=== PATIENT | female | born 1955 | race Caucasian/White ===

== ENCOUNTER 2016-09-23 12:25 | Emergency (ER) | payer OTHER ==
[~2016-09-23] VITALS: Ht 162.6 cm; Wt 150.2 kg
[~2016-09-23 12:25] MED LIST: ACETAMINOPHEN500 MG PO; BUSPAR5 MG PO; CELEXA40 MG PO; CENTRUM SILVER1 EAC4 PO; CITALOPRAM HBR20 M1 PO; CITALOPRAM HBR40 MG PO; DESYREL300 MG PO; DIFLUCAN150 MG PO; DIFLUCAN200 MG PO; DOXYCYCLINE HY100 M3 PO; Desyrel PO; FUROSEMIDE40 MG PO; LASIX10 MG PO; LASIX40 MG PO; LEVAQUIN500 MG PO; LEVAQUIN750 MG PO; LEVOFLOXACIN750 MG PO; LEVOTHROID200 MCG PO; LEVOTHROID50 MCG PO; LEVOTHYROXINE125 MCG PO; LEVOTHYROXINE200 MC1 PO; LEVOTHYROXINE50 MCG PO; LINEZOLID600 MG PO; LOMOTIL TABLET1 EACH PO; LOPRESSOR25 MG PO; Levaquin PO; MACROBID100 MG PO; MEGESTROL ACETA40 MG PO; MELOXICAM15 MG PO; MELOXICAM7.5 MG PO; METOPROLOL TART50 MG PO; NABUMETONE500 MG PO; PROBIOTIC1 EAC1 PO; RANITIDINE HCL150 MG PO; SYNTHROID200 MCG PO; TRAMADOL HCL50 MG PO; TRAZODONE HCL100 MG PO; TRAZODONE HCL150 MG PO; TRAZODONE HCL50 MG PO; TYLENOL ARTHRI650 M2 PO; TYLENOL ARTHRI650 MG PO; TYLENOL EXTRA500 MG PO; VANCOCIN 250 M250 MG PO; VANCOCIN HCL125 MG PO; VITAMIN A10000 UNIT PO; VITAMIN D1000 UNIT PO; VITAMIN D31000 UNI2 PO; WOMEN'S DAILY1 EAC1 PO; WOMEN'S DAILY1 EAC2 PO; WOMENS MULTIPL1 EACH PO; ZANTAC150 M1 PO; ZEASORB-AF70 G1 TP; [UNRECOGNIZED DRUG - OTHER] TP
[2016-09-23 13:26] LABS: EOSINOPHIL (%) 2.1 % (0-5); EOSINOPHIL COUNT 0.2 K/uL (0-0.3); HEMATOCRIT 38.3 % (36.0-46.0); MCH 28.1 PG (29.0-34.0); MCHC 32.1 G/DL (30.0-36.0); MCV 87.6 FL (83-99); MEAN PLAT.VOLUME 9.3 uM^3 (9.5-12.4); MONOCYTE COUNT 0.7 K/uL (0-0.8); NEUTROPHIL (%) 75.4 % (45-76); NEUTROPHIL COUNT 5.5 K/uL (1.8-6.4); PLATELET COUNT 235 K/uL (156-360); RBC DIS.WIDTH-CV 13.6 % (11.8-14.6); RBC DIS.WIDTH-SD 42.4 % (39-53); RED BLOOD COUNT 4.37 M/uL (3.80-5.20); WHITE BLOOD COUNT 7.3 K/uL (4.1-10.2)
[2016-09-23 13:34] LABS: CHLORIDE 107 mEq/L (99-109); POTASSIUM 4.3 mEq/L (3.7-5.4); SODIUM 141 mEq/L (136-147)
[2016-09-23 13:36] LABS: GLUCOSE 79 mg/dL (70-99)
[2016-09-23 13:37] LABS: ANION GAP 10 MEQ/L (2-14)
[2016-09-23 13:38] LABS: TOTAL BILIRUBIN 0.2 mg/dL (0.0-1.0)
[2016-09-23 13:40] LABS: ALKALINE PHOSPHATASE 81 IU/L (3-129); GFR ESTIMATE (CALCULATED) 44 mL/min/
[2016-09-23 13:41] LABS: UREA NITROGEN (BUN) 17 mg/dL (9-23)
[2016-09-23 14:52] LABS: C DIFF TOXIN POSITIVE (NEGATIVE)
[2016-09-23 15:06] LABS: PROBE CHECK PASS
[2016-09-23] MEDS ORDERED: VANCOMYCIN125 MG/2.5 PO (16:02)
[2016-09-23 16:20] VITALS: BP 174/75
== END 2016-09-23 16:47 | disposition home or self-care (01) ==
LOC: EME → EDBD 12:25 → EME 12:25
PROVIDERS: Emergency Medicine
DX: A04.7 Enterocolitis due to Clostridium difficile (principal); I10 Essential (primary) hypertension; K21.9 Gastro-esophageal reflux disease without esophagitis; E03.9 Hypothyroidism, unspecified; Z87.442 Personal history of urinary calculi; Z85.42 Personal history of malignant neoplasm of other parts of uterus; Z87.891 Personal history of nicotine dependence
CPT/HCPCS: 80053; 85025; 87493; 87506; 99281; 99285

== ENCOUNTER 2016-10-10 20:44 | Inpatient (IN) | payer OTHER ==
[~2016-10-10] VITALS: Ht 162.6 cm; Wt 159.6 kg
[~2016-10-10 20:44] MED LIST changes: +VANCOMYCIN125 MG/2.5 PO
[2016-10-10 21:32] LABS: HEMATOCRIT 39.6 % (36.0-46.0); MCH 27.9 PG (29.0-34.0); MCHC 31.8 G/DL (30.0-36.0); MCV 87.8 FL (83-99); MEAN PLAT.VOLUME 9.4 uM^3 (9.5-12.4); PLATELET COUNT 259 K/uL (156-360); RBC DIS.WIDTH-CV 13.8 % (11.8-14.6); RBC DIS.WIDTH-SD 43.1 % (39-53); RED BLOOD COUNT 4.51 M/uL (3.80-5.20); WHITE BLOOD COUNT 5.4 K/uL (4.1-10.2)
[2016-10-10 21:46] LABS: CHLORIDE 110 mEq/L (99-109); POTASSIUM 4.9 mEq/L (3.7-5.4); SODIUM 142 mEq/L (136-147)
[2016-10-10 21:47] LABS: GLUCOSE 105 mg/dL (70-99)
[2016-10-10 21:49] LABS: ANION GAP 10 MEQ/L (2-14)
[2016-10-10 21:51] LABS: GFR ESTIMATE (CALCULATED) 35 mL/min/
[2016-10-10 21:52] LABS: UREA NITROGEN (BUN) 18 mg/dL (9-23)
[2016-10-10] MEDS ORDERED: DESYREL 150 MG150 MG PO (22:51)
[2016-10-10] MEDS ORDERED: DIFLUCAN150 MG PO (22:53)
[2016-10-10] MEDS ORDERED: DIFICID200 MG PO (22:54)
[2016-10-11 02:45] VITALS: BP 117/60
[2016-10-11 03:10] VITALS: BP 158/74
[2016-10-11 06:50] VITALS: BP 169/77
[2016-10-11 12:06] VITALS: BP 162/72
[2016-10-11 15:54] VITALS: BP 130/60
[2016-10-11 19:39] VITALS: BP 150/74
[2016-10-12 01:11] LABS: METH RESISTANT S AUREUS PCR NEGATIVE (NEGATIVE)
[2016-10-12 01:20] LABS: PROBE CHECK PASS; SPECIMEN PROCESSING CONTROL PASS
[2016-10-12 03:39] VITALS: BP 157/66
[2016-10-12 06:30] LABS: EOSINOPHIL (%) 2.4 % (0-5); EOSINOPHIL COUNT 0.1 K/uL (0-0.3); HEMATOCRIT 33.8 % (36.0-46.0); IMMATURE GRANULOCYTE (%) 0.2 % (0.0-0.7); MCH 27.4 PG (29.0-34.0); MCHC 30.5 G/DL (30.0-36.0); MCV 89.9 FL (83-99); MEAN PLAT.VOLUME 9.4 uM^3 (9.5-12.4); MONOCYTE (%) 12.2 % (3-12); MONOCYTE COUNT 0.7 K/uL (0-0.8); NEUTROPHIL (%) 66.5 % (45-76); NEUTROPHIL COUNT 3.6 K/uL (1.8-6.4); PLATELET COUNT 196 K/uL (156-360); RBC DIS.WIDTH-CV 14.4 % (11.8-14.6); RED BLOOD COUNT 3.76 M/uL (3.80-5.20); WHITE BLOOD COUNT 5.4 K/uL (4.1-10.2)
[2016-10-12 06:38] LABS: ANION GAP 4 MEQ/L (2-14); CHLORIDE 110 MEQ/L (99-109); GFR ESTIMATE (CALCULATED) 35 mL/min/; GLUCOSE 77 mg/dL (70-99); POTASSIUM 4.3 MEQ/L (3.7-5.4); SAMPLE HEMOLYSIS CHECK 0; SAMPLE ICTERIC CHECK 0; SAMPLE LIPEMIA CHECK 0; SODIUM 142 MEQ/L (136-147); UREA NITROGEN (BUN) 18 mg/dL (9-23)
[2016-10-12 15:33] VITALS: BP 136/68
[2016-10-13 00:22] VITALS: BP 156/77
[2016-10-13 07:50] VITALS: BP 149/67
[2016-10-13 15:27] VITALS: BP 149/71
[2016-10-13 23:42] VITALS: BP 143/67
[2016-10-14 07:04] VITALS: BP 139/67
[2016-10-14 11:17] LABS: HEMATOCRIT 33.6 % (36.0-46.0); MCH 27.4 PG (29.0-34.0); MCHC 30.7 G/DL (30.0-36.0); MCV 89.4 FL (83-99); MEAN PLAT.VOLUME 9.6 uM^3 (9.5-12.4); PLATELET COUNT 188 K/uL (156-360); RBC DIS.WIDTH-SD 45.6 % (39-53); RED BLOOD COUNT 3.76 M/uL (3.80-5.20); WHITE BLOOD COUNT 5.6 K/uL (4.1-10.2)
[2016-10-14 11:54] LABS: ALKALINE PHOSPHATASE 65 IU/L (3-129); ANION GAP 7 MEQ/L (2-14); CHLORIDE 108 MEQ/L (99-109); GFR ESTIMATE (CALCULATED) 48 mL/min/; POTASSIUM 4.3 MEQ/L (3.7-5.4); SAMPLE HEMOLYSIS CHECK 0; SAMPLE ICTERIC CHECK 0; SAMPLE LIPEMIA CHECK 0; SODIUM 141 MEQ/L (136-147); TOTAL BILIRUBIN 0.3 MG/DL (0.0-1.0); UREA NITROGEN (BUN) 18 mg/dL (9-23)
[2016-10-14 11:56] LABS: GLUCOSE 116 mg/dL (70-99)
[2016-10-14 15:45] VITALS: BP 141/70
[2016-10-15] VITALS: BP 136/67
[2016-10-15 07:14] LABS: EOSINOPHIL (%) 3.3 % (0-5); EOSINOPHIL COUNT 0.2 K/uL (0-0.3); HEMATOCRIT 33.4 % (36.0-46.0); IMMATURE GRANULOCYTE (%) 0.4 % (0.0-0.7); LYMPHOCYTE COUNT 0.9 K/uL (1.0-2.8); MCH 27.7 PG (29.0-34.0); MCHC 31.1 G/DL (30.0-36.0); MCV 89.1 FL (83-99); MEAN PLAT.VOLUME 9.3 uM^3 (9.5-12.4); MONOCYTE (%) 11.6 % (3-12); MONOCYTE COUNT 0.6 K/uL (0-0.8); NEUTROPHIL (%) 66.8 % (45-76); NEUTROPHIL COUNT 3.5 K/uL (1.8-6.4); PLATELET COUNT 205 K/uL (156-360); RBC DIS.WIDTH-CV 14.2 % (11.8-14.6); RBC DIS.WIDTH-SD 46.1 % (39-53); RED BLOOD COUNT 3.75 M/uL (3.80-5.20); WHITE BLOOD COUNT 5.2 K/uL (4.1-10.2)
[2016-10-15 07:38] VITALS: BP 140/80
[2016-10-15 07:46] LABS: ANION GAP 7 MEQ/L (2-14); CHLORIDE 108 MEQ/L (99-109); GFR ESTIMATE (CALCULATED) 40 mL/min/; POTASSIUM 4.4 MEQ/L (3.7-5.4); SAMPLE HEMOLYSIS CHECK 0; SAMPLE ICTERIC CHECK 0; SAMPLE LIPEMIA CHECK 0; SODIUM 140 MEQ/L (136-147); UREA NITROGEN (BUN) 23 mg/dL (9-23)
[2016-10-15 07:47] LABS: GLUCOSE 81 mg/dL (70-99)
[2016-10-15 11:40] LABS: ADD MIUA? YES; BILIRUBIN NEGATIVE; BLOOD SMALL; COLOR YELLOW ((YELLOW)); GLUCOSE (STRIP) NEGATIVE; KETONES NEGATIVE; LEUKOCYTES LARGE; NITRITE POSITIVE; PROTEIN (STRIP) NEGATIVE; SPECIFIC GRAVITY 1.018 (1.000-1.030); UROBILINOGEN 0.2 MG/DL (0.2-1.0)
[2016-10-15 14:09] LABS: RED BLOOD CELLS 0-5 /HPF (0-5); WHITE BLOOD CELLS 15-20 /HPF (0-5)
[2016-10-15 14:10] LABS: BACTERIA 3+ /HPF; CASTS NONE SEEN /LPF; CRYSTALS NONE SEEN; EPITHELIAL CELLS RARE /HPF; MUCUS 1+; UCUL ADDED? YES
[2016-10-15 16:15] VITALS: BP 141/66
[2016-10-15 23:38] VITALS: BP 138/70
[2016-10-16 07:35] LABS: EOSINOPHIL (%) 3.1 % (0-5); EOSINOPHIL COUNT 0.2 K/uL (0-0.3); IMMATURE GRANULOCYTE (%) 0.2 % (0.0-0.7); LYMPHOCYTE COUNT 0.8 K/uL (1.0-2.8); MCH 28.6 PG (29.0-34.0); MCHC 32.1 G/DL (30.0-36.0); MCV 89.2 FL (83-99); MEAN PLAT.VOLUME 9.8 uM^3 (9.5-12.4); MONOCYTE (%) 10.1 % (3-12); MONOCYTE COUNT 0.5 K/uL (0-0.8); NEUTROPHIL (%) 71.8 % (45-76); NEUTROPHIL COUNT 3.7 K/uL (1.8-6.4); PLATELET COUNT 206 K/uL (156-360); RBC DIS.WIDTH-CV 13.9 % (11.8-14.6); RBC DIS.WIDTH-SD 45.8 % (39-53); WHITE BLOOD COUNT 5.1 K/uL (4.1-10.2)
[2016-10-16 08:00] VITALS: BP 146/79
[2016-10-16 08:03] LABS: ALKALINE PHOSPHATASE 60 IU/L (3-129); ANION GAP 7 MEQ/L (2-14); CHLORIDE 108 MEQ/L (99-109); GFR ESTIMATE (CALCULATED) 37 mL/min/; GLUCOSE 81 mg/dL (70-99); POTASSIUM 4.4 MEQ/L (3.7-5.4); SAMPLE HEMOLYSIS CHECK 0; SAMPLE ICTERIC CHECK 0; SAMPLE LIPEMIA CHECK 0; SODIUM 140 MEQ/L (136-147); TOTAL BILIRUBIN 0.3 MG/DL (0.0-1.0); UREA NITROGEN (BUN) 24 mg/dL (9-23)
[2016-10-16] MEDS ORDERED: ZYVOX600 MG PO (09:45)
[2016-10-16] MEDS ORDERED: ENDOCET 5-3251 EACH PO (09:45)
== END 2016-10-16 15:20 | disposition home or self-care (01) | DRG 603 ==
LOC: EME → EDBD 20:44 → 2EAST 10-11 01:28 → EDOF 10-11 01:28 → 2EAST 10-11 02:56
PROVIDERS: Emergency Medicine; Hospitalist; Internal Medicine
DX: L03.116 Cellulitis of left lower limb (principal); A04.7 Enterocolitis due to Clostridium difficile; L97.129 Non-pressure chronic ulcer of left thigh with unspecified severity; Z68.44 Body mass index [BMI] 60.0-69.9, adult; L03.115 Cellulitis of right lower limb; E11.22 Type 2 diabetes mellitus with diabetic chronic kidney disease; E66.01 Morbid (severe) obesity due to excess calories; N18.3 Chronic kidney disease, stage 3 (moderate); I87.2 Venous insufficiency (chronic) (peripheral); E03.9 Hypothyroidism, unspecified; R82.71 Bacteriuria; I89.0 Lymphedema, not elsewhere classified; F32.9 Major depressive disorder, single episode, unspecified; E78.5 Hyperlipidemia, unspecified; I12.9 Hypertensive chronic kidney disease with stage 1 through stage 4 chronic kidney disease, or unspecified chronic kidney disease; L65.9 Nonscarring hair loss, unspecified; L30.9 Dermatitis, unspecified; Z85.89 Personal history of malignant neoplasm of other organs and systems
CPT/HCPCS: 74176; 80048; 80053; 80202; 81003; 82948; 85025; 85027; 87077; 87086; 87186; 87641; 93971; 99281; 99284; J1644; J1815; J2270; J3370

== ENCOUNTER 2016-10-18 01:50 | Emergency (ER) | payer OTHER ==
[~2016-10-18] VITALS: Ht 162.6 cm; Wt 155.4 kg
[~2016-10-18 01:50] MED LIST changes: +DESYREL 150 MG150 MG PO; +DIFICID200 MG PO; +ENDOCET 5-3251 EACH PO; +ZYVOX600 MG PO
[2016-10-18 03:18] LABS: EOSINOPHIL (%) 2.5 % (0-5); EOSINOPHIL COUNT 0.2 K/uL (0-0.3); HEMATOCRIT 38.5 % (36.0-46.0); IMMATURE GRANULOCYTE (%) 0.2 % (0.0-0.7); IMMATURE GRANULOCYTE COUNT 0.2 K/uL; LYMPHOCYTE COUNT 0.9 K/uL (1.0-2.8); MCH 27.7 PG (29.0-34.0); MCHC 31.7 G/DL (30.0-36.0); MCV 87.3 FL (83-99); MEAN PLAT.VOLUME 9.4 uM^3 (9.5-12.4); MONOCYTE (%) 7.4 % (3-12); MONOCYTE COUNT 0.6 K/uL (0-0.8); NEUTROPHIL (%) 78.8 % (45-76); NEUTROPHIL COUNT 6.4 K/uL (1.8-6.4); PLATELET COUNT 269 K/uL (156-360); RBC DIS.WIDTH-CV 13.4 % (11.8-14.6); RBC DIS.WIDTH-SD 41.4 % (39-53); RED BLOOD COUNT 4.41 M/uL (3.80-5.20); WHITE BLOOD COUNT 8.1 K/uL (4.1-10.2)
[2016-10-18 03:23] LABS: CHLORIDE 110 mEq/L (99-109); POTASSIUM 4.1 mEq/L (3.7-5.4); SODIUM 142 mEq/L (136-147)
[2016-10-18 03:26] LABS: GLUCOSE 91 mg/dL (70-99)
[2016-10-18 03:27] LABS: ANION GAP 11 MEQ/L (2-14); TOTAL BILIRUBIN 0.3 mg/dL (0.0-1.0)
[2016-10-18 03:29] LABS: ALKALINE PHOSPHATASE 93 IU/L (3-129); GFR ESTIMATE (CALCULATED) 37 mL/min/
[2016-10-18 03:30] LABS: UREA NITROGEN (BUN) 20 mg/dL (9-23)
[2016-10-18 03:52] LABS: ADD MIUA? YES; BILIRUBIN NEGATIVE; BLOOD SMALL; COLOR YELLOW ((YELLOW)); GLUCOSE (STRIP) NEGATIVE; KETONES TRACE; LEUKOCYTES MODERATE; NITRITE NEGATIVE; PH, URINE 5.5 (5-8); PROTEIN (STRIP) TRACE; SPECIFIC GRAVITY 1.033 (1.000-1.030); UROBILINOGEN 0.2 MG/DL (0.2-1.0)
[2016-10-18 04:44] LABS: C DIFF TOXIN NEGATIVE (NEGATIVE)
[2016-10-18 04:52] LABS: EPITHELIAL CELLS RARE /HPF; MUCUS NONE SEEN /LPF; RED BLOOD CELLS 0-5 /HPF (0-5); WHITE BLOOD CELLS TNTC /HPF (0-5)
[2016-10-18 04:53] LABS: BACTERIA 1+ /HPF; CASTS NONE SEEN /LPF; CRYSTALS NONE SEEN; PROBE CHECK PASS; SPECIMEN PROCESSING CONTROL PASS; UCUL ADDED? YES
[2016-10-18 07:05] VITALS: BP 157/85
[2016-10-19] MEDS ORDERED: VANCOCIN HCL125 MG PO (10:01)
== END 2016-10-18 07:12 | disposition home or self-care (01) ==
LOC: EME 01:50
PROVIDERS: Emergency Medicine
DX: R19.7 Diarrhea, unspecified (principal); I10 Essential (primary) hypertension; Z87.442 Personal history of urinary calculi; K21.9 Gastro-esophageal reflux disease without esophagitis; E03.9 Hypothyroidism, unspecified; E66.01 Morbid (severe) obesity due to excess calories; Z68.43 Body mass index [BMI] 50.0-59.9, adult; Z87.891 Personal history of nicotine dependence
CPT/HCPCS: 80053; 81003; 85025; 87086; 87493; 87506; 99281; 99285; J7030

== ENCOUNTER 2016-10-19 07:27 | Emergency (ER) | payer OTHER ==
[~2016-10-19] VITALS: Ht 162.6 cm; Wt 154.1 kg
[2016-10-19 08:06] LABS: EOSINOPHIL (%) 2.7 % (0-5); EOSINOPHIL COUNT 0.2 K/uL (0-0.3); HEMATOCRIT 42.1 % (36.0-46.0); IMMATURE GRANULOCYTE (%) 0.2 % (0.0-0.7); IMMATURE GRANULOCYTE COUNT 0.1 K/uL; LYMPHOCYTE COUNT 0.6 K/uL (1.0-2.8); MCH 27.7 PG (29.0-34.0); MCHC 31.8 G/DL (30.0-36.0); MCV 87.2 FL (83-99); MEAN PLAT.VOLUME 9.4 uM^3 (9.5-12.4); MONOCYTE (%) 7.8 % (3-12); MONOCYTE COUNT 0.5 K/uL (0-0.8); NEUTROPHIL (%) 78.8 % (45-76); NEUTROPHIL COUNT 4.6 K/uL (1.8-6.4); PLATELET COUNT 287 K/uL (156-360); RBC DIS.WIDTH-CV 13.8 % (11.8-14.6); RBC DIS.WIDTH-SD 43.2 % (39-53); RED BLOOD COUNT 4.83 M/uL (3.80-5.20); WHITE BLOOD COUNT 5.9 K/uL (4.1-10.2)
[2016-10-19 08:18] LABS: CHLORIDE 110 mEq/L (99-109); POTASSIUM 3.9 mEq/L (3.7-5.4); SODIUM 145 mEq/L (136-147)
[2016-10-19 08:20] LABS: GLUCOSE 79 mg/dL (70-99)
[2016-10-19 08:22] LABS: ANION GAP 12 MEQ/L (2-14)
[2016-10-19 08:24] LABS: ALKALINE PHOSPHATASE 107 IU/L (3-129); GFR ESTIMATE (CALCULATED) 37 mL/min/; TOTAL BILIRUBIN 0.2 mg/dL (0.0-1.0)
[2016-10-19 08:25] LABS: UREA NITROGEN (BUN) 17 mg/dL (9-23)
[2016-10-19] MEDS ORDERED: VANCOCIN HCL125 MG PO (10:01)
[2016-10-19 10:27] VITALS: BP 131/62
== END 2016-10-19 12:09 | disposition home or self-care (01) ==
LOC: EME 07:27
PROVIDERS: Emergency Medicine
DX: R11.10 Vomiting, unspecified (principal); R19.7 Diarrhea, unspecified; I10 Essential (primary) hypertension; K21.9 Gastro-esophageal reflux disease without esophagitis; E03.9 Hypothyroidism, unspecified; R73.03 Prediabetes; Z85.42 Personal history of malignant neoplasm of other parts of uterus; Z87.442 Personal history of urinary calculi; Z87.891 Personal history of nicotine dependence
CPT/HCPCS: 80053; 85025; 87493; 99281; 99284; J7030

== ENCOUNTER → 2016-10-24 | Outpatient (CLI) | payer OTHER | END | disposition home or self-care (01) | LOC: AMB 10-10 08:30 | PROC: 0DH Gastrointestinal System, Insertion (ICD-10-PCS; principal; 2016-10-24) | DX: A04.7 Enterocolitis due to Clostridium difficile (principal) | CPT/HCPCS: 71010; 74000; G0455; J2060 ==

== ENCOUNTER 2016-11-13 22:08 | Inpatient (IN) | payer OTHER ==
[~2016-11-13] VITALS: Ht 162.6 cm; Wt 135.8 kg
[2016-11-13 23:37] LABS: CHLORIDE 107 mEq/L (99-109); SODIUM 140 mEq/L (136-147)
[2016-11-13 23:39] LABS: GLUCOSE 104 mg/dL (70-99)
[2016-11-13 23:40] LABS: EOSINOPHIL (%) 1.2 % (0-5); EOSINOPHIL COUNT 0.1 K/uL (0-0.3); HEMATOCRIT 39.9 % (36.0-46.0); IMMATURE GRANULOCYTE (%) 0.1 % (0.0-0.7); IMMATURE GRANULOCYTE COUNT 0.1 K/uL; LYMPHOCYTE COUNT 0.4 K/uL (1.0-2.8); MCH 28.3 PG (29.0-34.0); MCHC 31.6 G/DL (30.0-36.0); MCV 89.5 FL (83-99); MEAN PLAT.VOLUME 9.7 uM^3 (9.5-12.4); MONOCYTE (%) 9.3 % (3-12); MONOCYTE COUNT 0.8 K/uL (0-0.8); NEUTROPHIL (%) 84.6 % (45-76); NEUTROPHIL COUNT 7.7 K/uL (1.8-6.4); PLATELET COUNT 220 K/uL (156-360); RBC DIS.WIDTH-CV 14.8 % (11.8-14.6); RBC DIS.WIDTH-SD 47.6 % (39-53); RED BLOOD COUNT 4.46 M/uL (3.80-5.20)
[2016-11-13 23:41] LABS: ANION GAP 11 MEQ/L (2-14)
[2016-11-13 23:43] LABS: GFR ESTIMATE (CALCULATED) 40 mL/min/
[2016-11-13 23:44] LABS: UREA NITROGEN (BUN) 15 mg/dL (9-23)
[2016-11-13 23:50] LABS: WHITE BLOOD COUNT 9.1 K/uL (4.1-10.2)
[2016-11-14 02:17] LABS: ADD MIUA? YES; BILIRUBIN NEGATIVE; BLOOD MODERATE; COLOR AMBER ((YELLOW)); GLUCOSE (STRIP) NEGATIVE; KETONES NEGATIVE; LEUKOCYTES MODERATE; NITRITE POSITIVE; PROTEIN (STRIP) 30; SPECIFIC GRAVITY 1.026 (1.000-1.030); UROBILINOGEN 0.2 MG/DL (0.2-1.0)
[2016-11-14 02:51] LABS: BACTERIA 3+ /HPF; EPITHELIAL CELLS 3+ /HPF; MUCUS 2+ /LPF; UCUL ADDED? YES; WHITE BLOOD CELLS 15-20 /HPF (0-5)
[2016-11-14 04:08] LABS: C DIFF TOXIN POSITIVE (NEGATIVE)
[2016-11-14 04:11] LABS: PROBE CHECK PASS
[2016-11-14 05:41] VITALS: BP 138/66
[2016-11-14 07:47] VITALS: BP 122/70
[2016-11-14 09:09] LABS: HEMATOCRIT 36.3 % (36.0-46.0); MCH 27.4 PG (29.0-34.0); MCHC 30.6 G/DL (30.0-36.0); MCV 89.6 FL (83-99); MEAN PLAT.VOLUME 9.6 uM^3 (9.5-12.4); PLATELET COUNT 178 K/uL (156-360); RBC DIS.WIDTH-CV 15.1 % (11.8-14.6); RBC DIS.WIDTH-SD 49.1 % (39-53); RED BLOOD COUNT 4.05 M/uL (3.80-5.20); WHITE BLOOD COUNT 7.7 K/uL (4.1-10.2)
[2016-11-14 09:33] LABS: ANION GAP 7 MEQ/L (2-14); CHLORIDE 108 MEQ/L (99-109); GFR ESTIMATE (CALCULATED) 44 mL/min/; GLUCOSE 90 mg/dL (70-99); POTASSIUM 3.9 MEQ/L (3.7-5.4); SAMPLE HEMOLYSIS CHECK 0; SAMPLE ICTERIC CHECK 0; SAMPLE LIPEMIA CHECK 0; SODIUM 139 MEQ/L (136-147); UREA NITROGEN (BUN) 18 mg/dL (9-23)
[2016-11-14 10:17] LABS: EOSINOPHIL COUNT 0.1 K/uL (0-0.3); HEMATOLOGY COMMENT 1 SMEAR COMPATIBLE; IMMATURE GRANULOCYTE (%) 0.4 % (0.0-0.7); LYMPHOCYTE COUNT 0.7 K/uL (1.0-2.8); MONOCYTE (%) 18.1 % (3-12); MONOCYTE COUNT 1.4 K/uL (0-0.8); NEUTROPHIL (%) 71.5 % (45-76); NEUTROPHIL COUNT 5.5 K/uL (1.8-6.4); PLAT.SUFFICIENCY ADEQUATE; USER ID TLW
[2016-11-14 15:57] VITALS: BP 120/68
[2016-11-14 19:15] VITALS: BP 123/60
[2016-11-14 21:53] LABS: MCH 28.9 PG (29.0-34.0); MCHC 31.7 G/DL (30.0-36.0); MCV 91.1 FL (83-99); PLATELET COUNT 172 K/uL (156-360); RBC DIS.WIDTH-CV 15.3 % (11.8-14.6); RBC DIS.WIDTH-SD 50.8 % (39-53); RED BLOOD COUNT 3.84 M/uL (3.80-5.20); WHITE BLOOD COUNT 6.3 K/uL (4.1-10.2)
[2016-11-14 22:09] LABS: ANION GAP 8 MEQ/L (2-14); CHLORIDE 111 MEQ/L (99-109); POTASSIUM 3.4 MEQ/L (3.7-5.4); SAMPLE HEMOLYSIS CHECK 0; SAMPLE ICTERIC CHECK 0; SAMPLE LIPEMIA CHECK 0; SODIUM 141 MEQ/L (136-147); TOTAL BILIRUBIN 0.3 MG/DL (0.0-1.0)
[2016-11-14 22:10] LABS: INTER. NORMALIZED RATIO 1.3; PROTHROMBIN TIME 13.3 (9.2-11.2)
[2016-11-14 22:44] LABS: ALKALINE PHOSPHATASE 60 IU/L (3-129); GFR ESTIMATE (CALCULATED) 35 mL/min/; UREA NITROGEN (BUN) 20 mg/dL (9-23)
[2016-11-14 22:45] LABS: GLUCOSE 119 mg/dL (70-99)
[2016-11-14 23:30] VITALS: BP 125/89
[2016-11-14 23:45] VITALS: BP 131/67
[2016-11-14 23:50] LABS: TROP-I INTERPRETATION NEGATIVE; TROPONIN-I < 0.01 ng/mL (0.0-0.30)
[2016-11-15 01:00] VITALS: BP 137/79
[2016-11-15 04:00] VITALS: BP 118/84
[2016-11-15 05:14] LABS: EOSINOPHIL (%) 3.3 % (0-5); EOSINOPHIL COUNT 0.3 K/uL (0-0.3); HEMATOCRIT 36.2 % (36.0-46.0); IMMATURE GRANULOCYTE (%) 0.3 % (0.0-0.7); MCH 26.9 PG (29.0-34.0); MCHC 29.6 G/DL (30.0-36.0); MEAN PLAT.VOLUME 10.3 uM^3 (9.5-12.4); MONOCYTE (%) 15.2 % (3-12); MONOCYTE COUNT 1.2 K/uL (0-0.8); NEUTROPHIL (%) 67.3 % (45-76); NEUTROPHIL COUNT 5.1 K/uL (1.8-6.4); PLATELET COUNT 188 K/uL (156-360); RBC DIS.WIDTH-CV 15.3 % (11.8-14.6); RBC DIS.WIDTH-SD 51.3 % (39-53); RED BLOOD COUNT 3.98 M/uL (3.80-5.20); WHITE BLOOD COUNT 7.6 K/uL (4.1-10.2)
[2016-11-15 05:39] LABS: ALKALINE PHOSPHATASE 65 IU/L (3-129); ANION GAP 8 MEQ/L (2-14); CHLORIDE 110 MEQ/L (99-109); GFR ESTIMATE (CALCULATED) 32 mL/min/; POTASSIUM 3.3 MEQ/L (3.7-5.4); SAMPLE HEMOLYSIS CHECK 0; SAMPLE ICTERIC CHECK 0; SAMPLE LIPEMIA CHECK 0; SODIUM 140 MEQ/L (136-147); TOTAL BILIRUBIN 0.3 MG/DL (0.0-1.0); UREA NITROGEN (BUN) 22 mg/dL (9-23)
[2016-11-15 05:46] LABS: TROP-I INTERPRETATION NEGATIVE; TROPONIN-I 0.01 ng/mL (0.0-0.30)
[2016-11-15 05:50] LABS: GLUCOSE 84 mg/dL (70-99)
[2016-11-15 08:11] VITALS: BP 135/55
[2016-11-15] MEDS ORDERED: VANCOMYCIN HCL250 MG PO (10:42)
[2016-11-15 11:11] LABS: TROP-I INTERPRETATION NEGATIVE; TROPONIN-I < 0.01 ng/mL (0.0-0.30)
[2016-11-15 11:45] VITALS: BP 141/65
[2016-11-15 17:44] VITALS: BP 120/65
[2016-11-15 20:00] VITALS: BP 147/85
[2016-11-16 00:50] VITALS: BP 135/70
[2016-11-16 04:00] VITALS: BP 125/75
[2016-11-16 07:40] VITALS: BP 142/70
[2016-11-16 10:13] LABS: EOSINOPHIL (%) 3.8 % (0-5); EOSINOPHIL COUNT 0.2 K/uL (0-0.3); HEMATOCRIT 36.7 % (36.0-46.0); IMMATURE GRANULOCYTE (%) 0.6 % (0.0-0.7); LYMPHOCYTE COUNT 0.8 K/uL (1.0-2.8); MCH 26.9 PG (29.0-34.0); MCHC 29.7 G/DL (30.0-36.0); MCV 90.6 FL (83-99); MEAN PLAT.VOLUME 10.6 uM^3 (9.5-12.4); MONOCYTE (%) 6.9 % (3-12); MONOCYTE COUNT 0.4 K/uL (0-0.8); NEUTROPHIL (%) 72.5 % (45-76); NEUTROPHIL COUNT 3.7 K/uL (1.8-6.4); PLATELET COUNT 185 K/uL (156-360); RBC DIS.WIDTH-CV 15.3 % (11.8-14.6); RBC DIS.WIDTH-SD 50.5 % (39-53); RED BLOOD COUNT 4.05 M/uL (3.80-5.20); WHITE BLOOD COUNT 5.1 K/uL (4.1-10.2)
[2016-11-16 10:43] LABS: ANION GAP 7 MEQ/L (2-14); CHLORIDE 112 MEQ/L (99-109); GFR ESTIMATE (CALCULATED) 44 mL/min/; GLUCOSE 110 mg/dL (70-99); POTASSIUM 3.8 MEQ/L (3.7-5.4); SAMPLE HEMOLYSIS CHECK 0; SAMPLE ICTERIC CHECK 0; SAMPLE LIPEMIA CHECK 0; SODIUM 143 MEQ/L (136-147); UREA NITROGEN (BUN) 15 mg/dL (9-23)
[2016-11-16 11:45] VITALS: BP 138/68
[2016-11-16 15:00] VITALS: BP 146/74
[2016-11-16 19:57] VITALS: BP 110/62
[2016-11-17 00:23] VITALS: BP 112/58
[2016-11-17 05:02] VITALS: BP 110/58
[2016-11-17 06:49] LABS: EOSINOPHIL (%) 2.9 % (0-5); EOSINOPHIL COUNT 0.2 K/uL (0-0.3); HEMATOCRIT 33.2 % (36.0-46.0); IMMATURE GRANULOCYTE (%) 0.9 % (0.0-0.7); IMMATURE GRANULOCYTE COUNT 0.1 K/uL; LYMPHOCYTE COUNT 0.7 K/uL (1.0-2.8); MCH 28.5 PG (29.0-34.0); MCV 91.7 FL (83-99); MEAN PLAT.VOLUME 10.2 uM^3 (9.5-12.4); MONOCYTE (%) 8.6 % (3-12); MONOCYTE COUNT 0.5 K/uL (0-0.8); NEUTROPHIL (%) 73.9 % (45-76); NEUTROPHIL COUNT 4.1 K/uL (1.8-6.4); PLATELET COUNT 179 K/uL (156-360); RBC DIS.WIDTH-CV 15.4 % (11.8-14.6); RBC DIS.WIDTH-SD 51.9 % (39-53); RED BLOOD COUNT 3.62 M/uL (3.80-5.20); WHITE BLOOD COUNT 5.5 K/uL (4.1-10.2)
[2016-11-17 07:09] LABS: ANION GAP 4 MEQ/L (2-14); CHLORIDE 115 MEQ/L (99-109); GFR ESTIMATE (CALCULATED) 44 mL/min/; GLUCOSE 99 mg/dL (70-99); POTASSIUM 4.2 MEQ/L (3.7-5.4); SAMPLE HEMOLYSIS CHECK 0; SAMPLE ICTERIC CHECK 0; SAMPLE LIPEMIA CHECK 0; SODIUM 142 MEQ/L (136-147); UREA NITROGEN (BUN) 15 mg/dL (9-23)
[2016-11-17 07:20] VITALS: BP 118/64
[2016-11-17 11:00] VITALS: BP 134/74
[2016-11-17 15:00] VITALS: BP 114/68
[2016-11-17 21:45] VITALS: BP 122/78
[2016-11-18] VITALS (7 sets, daily range): BP systolic 120–144; BP diastolic 62–76
[2016-11-18 06:52] LABS: MCH 27.1 PG (29.0-34.0); MCHC 30.3 G/DL (30.0-36.0); MCV 89.5 FL (83-99); MEAN PLAT.VOLUME 10.1 uM^3 (9.5-12.4); PLATELET COUNT 203 K/uL (156-360); RBC DIS.WIDTH-CV 15.1 % (11.8-14.6); WHITE BLOOD COUNT 5.9 K/uL (4.1-10.2)
[2016-11-18 07:11] LABS: EOSINOPHIL (%) 3.9 % (0-5); EOSINOPHIL COUNT 0.2 K/uL (0-0.3); IMMATURE GRANULOCYTE (%) 2.2 % (0.0-0.7); IMMATURE GRANULOCYTE COUNT 0.1 K/uL; LYMPHOCYTE COUNT 1.1 K/uL (1.0-2.8); MONOCYTE (%) 12.8 % (3-12); MONOCYTE COUNT 0.8 K/uL (0-0.8); NEUTROPHIL (%) 63.2 % (45-76); NEUTROPHIL COUNT 3.8 K/uL (1.8-6.4)
[2016-11-18 07:19] LABS: ANION GAP 10 MEQ/L (2-14); CHLORIDE 113 MEQ/L (99-109); GFR ESTIMATE (CALCULATED) 48 mL/min/; GLUCOSE 93 mg/dL (70-99); POTASSIUM 4.3 MEQ/L (3.7-5.4); SAMPLE HEMOLYSIS CHECK 0; SAMPLE ICTERIC CHECK 0; SAMPLE LIPEMIA CHECK 0; SODIUM 143 MEQ/L (136-147); UREA NITROGEN (BUN) 17 mg/dL (9-23)
[2016-11-18 07:48] LABS: HEMATOLOGY COMMENT 1 SMEAR COMPATIBLE; PLAT.SUFFICIENCY ADEQUATE; USER ID TLW
[2016-11-19] VITALS (7 sets, daily range): BP systolic 132–153; BP diastolic 68–84
[2016-11-19 06:50] LABS: HEMATOCRIT 36.5 % (36.0-46.0); MCHC 29.9 G/DL (30.0-36.0); MCV 90.3 FL (83-99); MEAN PLAT.VOLUME 9.9 uM^3 (9.5-12.4); PLATELET COUNT 234 K/uL (156-360); RBC DIS.WIDTH-SD 49.9 % (39-53); RED BLOOD COUNT 4.04 M/uL (3.80-5.20); WHITE BLOOD COUNT 6.6 K/uL (4.1-10.2)
[2016-11-19 06:54] LABS: ANION GAP 9 MEQ/L (2-14); CHLORIDE 114 MEQ/L (99-109); GFR ESTIMATE (CALCULATED) 48 mL/min/; GLUCOSE 95 mg/dL (70-99); POTASSIUM 4.6 MEQ/L (3.7-5.4); SAMPLE HEMOLYSIS CHECK 0; SAMPLE ICTERIC CHECK 0; SAMPLE LIPEMIA CHECK 0; SODIUM 143 MEQ/L (136-147); UREA NITROGEN (BUN) 19 mg/dL (9-23)
[2016-11-19 07:35] LABS: ABS NEUTROPHIL COUNT 4.66; ANISOCYTOSIS 1+; EOSINOPHIL ABS CT 0.26; PLAT.SUFFICIENCY ADEQUATE; USER ID STC
[2016-11-20 04:00] VITALS: BP 140/73
[2016-11-20 06:44] LABS: MCH 27.4 PG (29.0-34.0); MCHC 30.6 G/DL (30.0-36.0); MCV 89.8 FL (83-99); MEAN PLAT.VOLUME 10.1 uM^3 (9.5-12.4); PLATELET COUNT 257 K/uL (156-360); RBC DIS.WIDTH-CV 14.8 % (11.8-14.6); RBC DIS.WIDTH-SD 48.6 % (39-53); RED BLOOD COUNT 4.01 M/uL (3.80-5.20); WHITE BLOOD COUNT 6.6 K/uL (4.1-10.2)
[2016-11-20 08:05] VITALS: BP 150/71
[2016-11-20 11:37] VITALS: BP 146/61
[2016-11-20 15:33] VITALS: BP 140/70
[2016-11-20 19:46] VITALS: BP 138/76
[2016-11-20 23:49] VITALS: BP 165/71
[2016-11-21 03:39] VITALS: BP 158/72
[2016-11-21 08:00] VITALS: BP 122/60
[2016-11-21 15:38] VITALS: BP 139/64
[2016-11-22] VITALS: BP 168/74
[2016-11-22 07:07] LABS: HEMATOCRIT 36.6 % (36.0-46.0); MCH 27.8 PG (29.0-34.0); MCHC 30.6 G/DL (30.0-36.0); MCV 90.8 FL (83-99); MEAN PLAT.VOLUME 9.9 uM^3 (9.5-12.4); PLATELET COUNT 294 K/uL (156-360); RBC DIS.WIDTH-CV 14.5 % (11.8-14.6); RBC DIS.WIDTH-SD 47.5 % (39-53); RED BLOOD COUNT 4.03 M/uL (3.80-5.20); WHITE BLOOD COUNT 6.6 K/uL (4.1-10.2)
[2016-11-22 08:07] VITALS: BP 141/74
[2016-11-22 15:27] VITALS: BP 147/69
[2016-11-22 23:54] VITALS: BP 150/65
[2016-11-23 16:42] VITALS: BP 124/66
[2016-11-24 00:38] VITALS: BP 144/68
[2016-11-24 07:57] VITALS: BP 140/69
[2016-11-24 17:06] VITALS: BP 144/70
[2016-11-24 23:26] VITALS: BP 148/72
[2016-11-25 07:15] LABS: HEMATOCRIT 37.9 % (36.0-46.0); MCH 27.5 PG (29.0-34.0); MCHC 30.1 G/DL (30.0-36.0); MCV 91.5 FL (83-99); MEAN PLAT.VOLUME 9.8 uM^3 (9.5-12.4); PLATELET COUNT 313 K/uL (156-360); RBC DIS.WIDTH-CV 14.6 % (11.8-14.6); RBC DIS.WIDTH-SD 49.5 % (39-53); RED BLOOD COUNT 4.14 M/uL (3.80-5.20); WHITE BLOOD COUNT 6.4 K/uL (4.1-10.2)
[2016-11-25 07:48] VITALS: BP 168/72
[2016-11-25 15:37] VITALS: BP 126/58
[2016-11-26 00:14] VITALS: BP 128/74
[2016-11-26 08:00] VITALS: BP 126/78
[2016-11-26 15:15] VITALS: BP 122/78
[2016-11-27 00:08] VITALS: BP 124/63
[2016-11-27 07:26] LABS: HEMATOCRIT 37.4 % (36.0-46.0); MCH 27.9 PG (29.0-34.0); MCHC 30.5 G/DL (30.0-36.0); MCV 91.7 FL (83-99); PLATELET COUNT 326 K/uL (156-360); RBC DIS.WIDTH-CV 14.3 % (11.8-14.6); RBC DIS.WIDTH-SD 48.1 % (39-53); RED BLOOD COUNT 4.08 M/uL (3.80-5.20); WHITE BLOOD COUNT 5.9 K/uL (4.1-10.2)
[2016-11-27 07:43] VITALS: BP 130/71
[2016-11-27] MEDS ORDERED: METOPROLOL TART75 MG PO (12:32)
[2016-11-27] MEDS ORDERED: ENDOCET 5-3251 EACH PO (12:32)
[2016-11-27] MEDS ORDERED: FLORASTOR250 MG PO (12:32)
[2016-11-27] MEDS ORDERED: ZINC OXIDE56.7 GM TP (12:32)
[2016-11-27] MEDS ORDERED: VANCOMYCIN HCL250 MG PO (12:32)
[2016-11-27] MEDS ORDERED: ELIQUIS5 MG PO (12:32)
[2016-11-27 15:49] VITALS: BP 147/75
[2016-11-27 23:41] VITALS: BP 130/71
[2016-11-28 08:19] VITALS: BP 142/78
[2016-11-28 15:23] VITALS: BP 144/78
[2016-11-29 00:41] VITALS: BP 133/71
[2016-11-29 07:41] LABS: HEMATOCRIT 36.5 % (36.0-46.0); MCHC 30.4 G/DL (30.0-36.0); MCV 92.2 FL (83-99); MEAN PLAT.VOLUME 10.1 uM^3 (9.5-12.4); PLATELET COUNT 273 K/uL (156-360); RBC DIS.WIDTH-CV 14.5 % (11.8-14.6); RBC DIS.WIDTH-SD 48.9 % (39-53); RED BLOOD COUNT 3.96 M/uL (3.80-5.20); WHITE BLOOD COUNT 6.1 K/uL (4.1-10.2)
[2016-11-29 08:01] VITALS: BP 138/72
[2016-11-29] MEDS ORDERED: VANCOMYCIN HCL250 MG PO (10:58)
[2016-11-29] MEDS ORDERED: ZINC OXIDE56.7 GM TP (11:06)
[2016-11-29] MEDS ORDERED: ELIQUIS5 MG PO (11:06)
[2016-11-29] MEDS ORDERED: FLORASTOR250 MG PO (11:06)
[2016-11-29] MEDS ORDERED: METOPROLOL TART75 MG PO (11:06)
== END 2016-11-29 14:58 | DRG 694 ==
LOC: EME 22:08 → 2EAST 11-14 03:49 → EDOF 11-14 03:49 → 4EAST 11-14 03:49 → 2EAST 11-14 05:13 → 4EAST 11-14 23:15 → 5SOUTH 11-18 23:48
PROVIDERS: Hospitalist; Internal Medicine; Personal Emergency Response Attendant
PROC: 0T768DZ Dilation of Right Ureter with Intraluminal Device, Via Natural or Artificial Opening Endoscopic (ICD-10-PCS; principal; 2016-11-14)
DX: N13.2 Hydronephrosis with renal and ureteral calculous obstruction (principal); A04.7 Enterocolitis due to Clostridium difficile; Z68.44 Body mass index [BMI] 60.0-69.9, adult; N17.9 Acute kidney failure, unspecified; I87.2 Venous insufficiency (chronic) (peripheral); N13.1 Hydronephrosis with ureteral stricture, not elsewhere classified; K57.90 Diverticulosis of intestine, part unspecified, without perforation or abscess without bleeding; I48.0 Paroxysmal atrial fibrillation; L89.892 Pressure ulcer of other site, stage 2; R19.7 Diarrhea, unspecified; I89.0 Lymphedema, not elsewhere classified; E11.22 Type 2 diabetes mellitus with diabetic chronic kidney disease; E66.01 Morbid (severe) obesity due to excess calories; E78.5 Hyperlipidemia, unspecified; N18.3 Chronic kidney disease, stage 3 (moderate); E03.9 Hypothyroidism, unspecified; I12.9 Hypertensive chronic kidney disease with stage 1 through stage 4 chronic kidney disease, or unspecified chronic kidney disease; Z88.0 Allergy status to penicillin; Z88.2 Allergy status to sulfonamides; Z88.8 Allergy status to other drugs, medicaments and biological substances; Z87.891 Personal history of nicotine dependence; Z85.42 Personal history of malignant neoplasm of other parts of uterus; Z92.3 Personal history of irradiation; Z87.738 Personal history of other specified (corrected) congenital malformations of digestive system; F32.9 Major depressive disorder, single episode, unspecified
CPT/HCPCS: 74176; 74420; 80048; 80053; 81003; 83605; 84443; 84484; 85025; 85025 91; 85027; 85610; 85730; 87040; 87077; 87086; 87186; 87493; 93005; 93306; 97530 GP; 99281; 99285; C1876; J0330; J0696; J1644; J2250; J2270; J2405; J3010; J7030; J7050

== ENCOUNTER 2017-03-05 09:37 | Day surgery (SDC) | payer OTHER ==
[~2017-03-05] VITALS: Ht 162.6 cm; Wt 142.8 kg
[~2017-03-05 09:37] MED LIST changes: +CYMBALTA60 MG PO; +ELIQUIS5 MG PO; +FLORASTOR250 MG PO; +METOPROLOL TART75 MG PO; +PERCOCET 10/1 TABLET PO; +VANCOMYCIN HCL250 MG PO; +WELLBUTRIN75 MG PO; +ZINC OXIDE56.7 GM TP
[2017-03-05 10:11] VITALS: BP 159/77
[2017-03-05 10:25] LABS: EOSINOPHIL (%) 6.1 % (0-5); EOSINOPHIL COUNT 0.4 K/uL (0-0.3); HEMATOCRIT 37.1 % (36.0-46.0); IMMATURE GRANULOCYTE (%) 1.1 % (0.0-0.7); IMMATURE GRANULOCYTE COUNT 0.1 K/uL; INSTRUMENT ABS NEUTROPHIL CT 3.9 K/uL; LYMPHOCYTE COUNT 0.9 K/uL (1.0-2.8); MCH 28.6 PG (29.0-34.0); MCHC 31.3 G/DL (30.0-36.0); MCV 91.4 FL (83-99); MEAN PLAT.VOLUME 9.3 uM^3 (9.5-12.4); MONOCYTE (%) 8.2 % (3-12); MONOCYTE COUNT 0.5 K/uL (0-0.8); NEUTROPHIL (%) 68.5 % (45-76); NEUTROPHIL COUNT 3.9 K/uL (1.8-6.4); PLATELET COUNT 296 K/uL (156-360); RBC DIS.WIDTH-SD 50.4 % (39-53); RED BLOOD COUNT 4.06 M/uL (3.80-5.20); WHITE BLOOD COUNT 5.7 K/uL (4.1-10.2)
[2017-03-05 10:51] LABS: ANION GAP 6 MEQ/L (2-14); CHLORIDE 104 MEQ/L (99-109); GFR ESTIMATE (CALCULATED) 37 mL/min/; GLUCOSE 91 mg/dL (70-99); POTASSIUM 4.9 MEQ/L (3.7-5.4); SAMPLE HEMOLYSIS CHECK 0; SAMPLE ICTERIC CHECK 0; SAMPLE LIPEMIA CHECK 0; SODIUM 141 MEQ/L (136-147); UREA NITROGEN (BUN) 30 mg/dL (9-23)
[2017-03-05 11:19] LABS: METH RESISTANT S AUREUS PCR NEGATIVE (NEGATIVE)
[2017-03-05 11:21] LABS: PROBE CHECK PASS; SPECIMEN PROCESSING CONTROL PASS
[2017-03-05 13:50] VITALS: BP 165/83
[2017-03-05 14:50] VITALS: BP 136/83
== END 2017-03-05 14:50 ==
LOC: SDC 09:37
PROVIDERS: Urology
DX: N20.1 Calculus of ureter (principal); Z88.0 Allergy status to penicillin; F41.9 Anxiety disorder, unspecified; I10 Essential (primary) hypertension; E03.9 Hypothyroidism, unspecified; Z80.1 Family history of malignant neoplasm of trachea, bronchus and lung; Z82.49 Family history of ischemic heart disease and other diseases of the circulatory system; Z87.891 Personal history of nicotine dependence
CPT/HCPCS: 80048; 82365 90; 85025; 87641; C1876; J0330; J0696; J1580; J2405; J3010; J7050

== ENCOUNTER → 2017-03-20 | Outpatient (CLI) | payer OTHER | LOC: AMB 08:00 | DX: A04.7 Enterocolitis due to Clostridium difficile (principal) | CPT/HCPCS: 71010; G0455; J1170 ==